=== PATIENT | female | born 1990 | race Caucasian/White ===

== ENCOUNTER → 2020-10-01 | Outpatient (CLI) | payer OTHER ==
[~2020-10-01] MED LIST: ACET325 PO; ALBU90OI INH; ALBU90OI6 INH; AMOX500 PO; ARIP10; BUPR150T2 PO; CEPH500 PO; CITA20 PO; CYCL10 PO; DIPH50 PO; DULO60 PO; FLUO20 PO; HYDACE5 PO; HYDACE5325 PO; HYOS.125 SL; IBUP800 PO; MEDR150I IM; ONDA4ODT MM; OXYACE5T PO; PREN-16 PO; PROM25 PO; RXOXYACE PO; TRAM50; TRAM50 PO; TRAZ100 PO; TRAZ150T57 PO; TRAZ50 PO; Verotin-Gr Cap1 EACH PO
== END ==
LOC: LAB 08:09 → LAB SHORT 08:09
DX: R87.610 Atypical squamous cells of undetermined significance on cytologic smear of cervix (ASC-US) (principal)
CPT/HCPCS: 88305

== ENCOUNTER 2021-03-07 00:02 | Emergency (ER) | payer OTHER ==
[~2021-03-07] VITALS: Ht 157.5 cm; Wt 70.3 kg
== END 2021-03-07 01:20 | disposition left against medical advice (07) ==
LOC: ER 00:02
DX: Z53.21 Procedure and treatment not carried out due to patient leaving prior to being seen by health care provider (principal)

== ENCOUNTER → 2021-11-09 | Outpatient (CLI) | payer OTHER ==
[2021-11-11 15:07] LABS: HPV 16 Negative (Negative); HPV 18 Negative (Negative); HPV OTHER HR TYPES Positive (Negative)
== END ==
LOC: LAB SHORT 17:45 → LAB 17:45
PROVIDERS: Registered Nurse Community Health
DX: Z12.4 Encounter for screening for malignant neoplasm of cervix (principal)
CPT/HCPCS: 87624; G0123

== ENCOUNTER 2022-09-29 16:40 | Emergency (ER) | payer OTHER ==
[~2022-09-29] VITALS: Ht 157.5 cm; Wt 68.0 kg
[2022-09-29 18:00] LABS: Influenza A, PCR NEGATIVE (NEGATIVE); Influenza B, PCR NEGATIVE (NEGATIVE); Resp Syncytial Virus, PCR NEGATIVE (NEGATIVE); SARS-Cov-2 (COVID-19) PCR, MMC NEGATIVE (NEGATIVE)
== END 2022-09-29 18:05 | disposition left against medical advice (07) ==
LOC: ER 16:40
PROVIDERS: Physician Assistant Medical
DX: R11.2 Nausea with vomiting, unspecified (principal); R05.9 Cough, unspecified; Z53.21 Procedure and treatment not carried out due to patient leaving prior to being seen by health care provider; Z20.822 Contact with and (suspected) exposure to COVID-19
CPT/HCPCS: 0241U

== ENCOUNTER → 2023-01-17 | Outpatient (CLI) | payer OTHER ==
[2023-01-23 15:11] LABS: HPV 16 Negative (Negative); HPV 18 Negative (Negative); HPV OTHER HR TYPES Positive (Negative)
== END ==
LOC: LAB SHORT 11:45
PROVIDERS: Registered Nurse Community Health
DX: Z87.42 Personal history of other diseases of the female genital tract (principal)
CPT/HCPCS: 87624; G0145

== ENCOUNTER 2024-09-17 14:44 | Emergency (ER) | payer OTHER ==
[~2024-09-17] VITALS: Ht 157.5 cm; Wt 81.2 kg
[2024-09-17 14:51] VITALS: BP 133/95
[2024-09-17] MEDS ORDERED: OxyCODONE HCL 5 MG TAB PO ONE (16:30)
[2024-09-17] MEDS ORDERED: Cephalexin Monohydrate 500 MG Cap PO ONE (16:30)
[2024-09-17] MEDS ORDERED: CEPH500 PO (16:35)
[2024-09-17] MEDS ORDERED: OXAYDO5 M1 PO (16:35)
== END 2024-09-17 17:01 | disposition home or self-care (01) ==
LOC: ER 14:44
DX: S61.012D Laceration without foreign body of left thumb without damage to nail, subsequent encounter (principal); L03.012 Cellulitis of left finger; W26.9XXD Contact with unspecified sharp object(s), subsequent encounter; F17.200 Nicotine dependence, unspecified, uncomplicated; J45.909 Unspecified asthma, uncomplicated; Z79.899 Other long term (current) drug therapy; Z88.6 Allergy status to analgesic agent; Z91.013 Allergy to seafood; S61.211A Laceration without foreign body of left index finger without damage to nail, initial encounter
CPT/HCPCS: 73140; 99282; A9270

== ENCOUNTER 2025-02-08 02:20 | Emergency (ER) | payer OTHER ==
[~2025-02-08] VITALS: Ht 157.5 cm; Wt 79.4 kg
[~2025-02-08 02:20] MED LIST changes: +OXAYDO5 M1 PO
[2025-02-08] MEDS ORDERED: Ondansetron HCl 2 MG / ML 2ML Vial IV PRN (02:40)
[2025-02-08 02:44] LABS: BASOPHILS ABSOLUTE AUTO 0.05 K/mm3 (0.00-0.23); BASOPHILS PERCENT AUTO 1 % (0-2); EOSINOPHILS ABSOLUTE AUTO 0.11 K/mm3 (0.00-0.68); EOSINOPHILS PERCENT AUTO 1 % (0-6); Hematocrit 35.9 % (33.0-51.0); Hemoglobin 11.9 g/dL (11.5-16.0); IMMATURE GRAN ABSOLUTE AUTO 0.01 K/mm3 (0.00-0.10); IMMATURE GRAN PERCENT AUTO 0 % (0-1); LYMPHOCYTES ABSOLUTE AUTO 3.61 K/mm3 (0.84-5.20); LYMPHOCYTES PERCENT AUTO 42 % (21-46); MONOCYTES ABSOLUTE AUTO 0.61 K/mm3 (0.16-1.47); MONOCYTES PERCENT AUTO 7 % (4-13); Mean Corpuscular HGB Conc 33.1 g/dL (31.5-36.5); Mean Corpuscular Volume 88 fL (80-100); Mean Platelet Volume 8.7 fL (9.1-12.4); NEUTROPHILS ABSOLUTE AUTO 4.22 K/mm3 (1.96-9.15); NEUTROPHILS PERCENT AUTO 49 % (41-73); Platelet Count 305 K/mm3 (150-400); RDW Coefficient Variation 13.1 % (11.7-14.2); RDW Standard Deviation 41.6 fL (35.1-46.3); White Blood Cell Count 8.61 K/mm3 (4.00-11.30)
[2025-02-08] MEDS ORDERED: Naproxen 250 MG TAB PO ONE (02:45)
[2025-02-08] MEDS ORDERED: Acetaminophen 500 MG Tab PO ONE (02:45)
[2025-02-08 03:03] LABS: Albumin, Blood 3.6 g/dL (3.4-5.0); Bilirubin, Total 0.2 mg/dL (0.1-1.0); Bun/Creatinine Ratio 21.3 (12.0-20.0); Calcium, Blood 8.6 mg/dL (8.5-10.1); Creatinine, Blood 0.66 mg/dL (0.40-1.00); Globulin, Blood 3.6 g/dL (2.2-4.0); Potassium, Blood 3.9 mmol/L (3.5-5.5); Total Protein, Blood 7.2 g/dL (6.4-8.2)
[2025-02-08 03:30] VITALS: BP 110/66
== END 2025-02-08 03:44 | disposition home or self-care (01) ==
LOC: ER 02:20
PROVIDERS: Emergency Medicine
DX: R07.9 Chest pain, unspecified (principal); F17.200 Nicotine dependence, unspecified, uncomplicated; J45.909 Unspecified asthma, uncomplicated
CPT/HCPCS: 71046; 80053; 83690; 83880; 84484; 85025; 93005; 93010; 99284-25; A9270; J2405